=== PATIENT | female | born 1950 | race African-American/Black ===

== ENCOUNTER → 2016-11-02 | Outpatient (CLI) | payer MEDICARE, OTHER ==
--- NOTE | 2016-11-02 15:41 | CT ---
EXAMINATION TYPE: CT soft tissue neck wo con DATE OF EXAM: 11/02/2016 3:26 PM COMPARISON: NONE HISTORY: Patient complains of generalized neck weakness and difficulty breathing. CT DLP: 390.2 mGycm CONTRAST: Unenhanced CT of the neck was performed from the skull base through the lung apices. The lack of cont rast limits evaluation. AIRWAY: The supraglottic, glottic, and subglottic portions of the airway appear patent and free of mass. SALIVARY GLANDS: The submandibular and parotid glands are free of mass or inflammatory process. THYROID GLAND: No nodules or masses seen. LYMPH NODES: No adenopathy seen greater than 1cm. LUNG APICES: No nodule or mass is seen. OTHER: Vascular structures are patent. Moderate degenerative change of the cervical spine. No absce ss seen. Chronic paranasal sinusitis. IMPRESSION: Degenerative changes cervical spine. Otherwise unremarkable study.
== END | disposition home or self-care (01) ==
LOC: RADCTMAIN 13:53
PROVIDERS: ATTEND Family Medicine
DX: M47.812 Spondylosis without myelopathy or radiculopathy, cervical region (principal)
CPT/HCPCS: 70490; 82565; 84520